=== PATIENT | male | born 1950 | race Caucasian/White ===

== ENCOUNTER 2018-08-20 20:40 | Emergency (ER) | payer MEDICARE, OTHER ==
--- NOTE | 2018-08-20 21:11 | UC ---
General HPI - HPI Summary HPI Summary: 67 yo man, currently on no medications, with history of hypertension and diabetes. Aware of heaviness in the left leg along with ataxia and decreased left arm coordination. Symptoms present on awakening at 06:30 am, last known well last evening. No headache, nausea, diplopia or vision loss. No hx of stroke or weakness. - History of Current Complaint Chief Complaint: UCLowerExtremity Stated Complaint: LEFT LEG "HEAVINESS" Time Seen by Provider: 08/20/18 21:00 Hx Obtained From: Patient Onset/Duration: Sudden Onset, Lasting Hours Timing: Intermittent Episodes Lasting: - had initial leg heaviness this morning , improved, but now has increasing ataxia and incoordination of the left hand for the past 1-2 hours. Onset Severity: Moderate Current Severity: Moderate Pain Intensity: 0 Aggravating: nothing Alleviating: improved after resting. Associated Signs & Symptoms: Positive: Nausea, Weakness, Other - ataxia - Allergy/Home Medications Allergies/Adverse Reactions: Allergies Allergy/AdvReac Type Severity Reaction Status Date / Time No Known Allergies Allergy Verified 08/20/18 21:00 Home Medications: Home Medications NK [No Home Medications Reported] 08/20/18 [History Confirmed 08/20/18] PMH/Surg Hx/FS Hx/Imm Hx - Additional Past Medical History Additional PMH: stopped anti-hypertensives and diabetes medications about one year ago due to not liking the side effects of metformin. Cardiovascular History: Hypertension - Surgical History Surgical History: Yes Surgery Procedure, Year, and Place: appy - Family History Known Family History: Positive: Unknown - not assessed due to arranging transfer for suspected stroke - Social History Occupation: Employed Full-time Lives: Alone Alcohol Use: Daily Alcohol Amount: 1-3 beers daily Substance Use Type: None Smoking Status (MU): Former Smoker When Did the Patient Quit Smoking/Using Tobacco: Review of Systems All Other Systems Reviewed And Are Negative: Yes Neurological: Negative: Headache Is Patient Immunocompromised?: No Physical Exam Triage Information Reviewed: Yes Appearance: No Pain Distress, Thin, Other: - alert, coherent historian Vital Signs: Initial Vital Signs Temp 98.3 F 08/20/18 20:44 Pulse 94 08/20/18 20:44 Resp 16 08/20/18 20:44 BP 220/130 08/20/18 20:44 Pulse Ox 99 08/20/18 20:44 Vital Signs Reviewed: Yes Eyes: Positive: Conjunctiva Clear ENT: Positive: Pharynx normal Dental Exam: Normal Neck: Positive: Supple, Nontender Respiratory: Positive: Lungs clear, Normal breath sounds Cardiovascular: Positive: RRR, No Murmur Neurological Exam: Other - left pronator drift, left hip with 3/5 muscle strength compared to 4.5/5 on the right. Ataxic gait, falls to the left, cannot heel to toe walk. DTR's 3+ both knees. Neurological: Positive: Alert Psychological: Positive: Normal Response To Family Skin Exam: Normal Course/Dx - Course Course Of Treatment: transferred to ER due to suspected stroke or TIA with ataxia and left sided weakness. - Diagnoses Provider Diagnosis: Left-sided weakness - Physician Notifications Discussed Patient Care With: Abebe Mcneal - discussed, decision made to tranfer directly to [facility] at [facility] Time Discussed With Above Provider: 21:40 Discharge - Sign-Out/Discharge Documenting (check all that apply): Patient Departure All imaging exams completed and their final reports reviewed: No Studies - Discharge Plan Condition: Stable Disposition: TRANS HIGHER LVL OF CARE FAC Referrals: No Primary Care Phys,NOPCP [Primary Care Provider] - - Billing Disposition and Condition Condition: STABLE Disposition: Trans Higher Lvl of Care Fac
[2018-08-20 21:30] VITALS: BP 233/127
== END 2018-08-20 21:43 | disposition short-term general hospital (02) ==
LOC: UCCORT 20:40
DX: M62.81 Muscle weakness (generalized) (principal); E11.9 Type 2 diabetes mellitus without complications; Z87.891 Personal history of nicotine dependence; I10 Essential (primary) hypertension
CPT/HCPCS: 99213; G0463

== ENCOUNTER 2019-01-05 16:51 | Emergency (ER) | payer MEDICARE ==
--- OUTSIDE RECORDS SUMMARY | 2019-01-05 17:00 | XMS REPORT | Continuity of Care Document ---
:1950 External Reference #:[id number] Author Name Jocelyn Ramos MD, PHD Address [address] [place] [address], [address] [place] [address] Care Team Providers Name Role Phone Jocelyn Ramos MD, PHD Care Team Information Saw Runner Unavailable Jocelyn Ramos MD, PHD Primary Care Physician Unavailable Payers Date Identification Numbers Payment Provider Subscriber Policy Number: [id number] Medicare Jeremy Tillman PayID: [id number] [address] [place] [address] Advance Directives Description No Information Available Problems Active Problems Provider Date Type II diabetes mellitus uncontrolled Jocelyn Ramos MD, PHD Onset: 2018 Cerebral artery occlusion Jocelyn Ramos MD, PHD Onset: 09/02/2018 Essential hypertension Jocelyn Ramos MD, PHD Onset: 09/02/2018 Nonunion of fracture Jocelyn Ramos MD, PHD Onset: 09/02/2018 Malaise and fatigue Jocelyn Ramos MD, PHD Onset: 09/02/2018 Reduced libido Jocelyn Ramos MD, PHD Onset: 12/21/2018 Type 1 diabetes mellitus uncontrolled Jocelyn Ramos MD, PHD Onset: 2018 Dysarthria Jocelyn Ramos MD, PHD Onset: 11/30/2018 HiccoughJocelyn Branham MD, PHD Onset: 11/30/2018 Gastroesophageal reflux disease Jocelyn Ramos MD, PHD Onset: 11/30/2018 Family History Description No Information Available Social History Type Date Description Comments Sex Unknown Lives With Alone Diet Patient follows no dietary restrictions Occupation Registered Dietitian ADL's/IADL's Independent with all ADL's ADL's/IADL's Independent with all IADL's Tobacco Use Start: Unknown Never Smoked Cigarettes Smoking Status Reviewed: 12/21/18 Never Smoked Cigarettes ETOH Use Occasionally consumes alcohol Tobacco Use Start: Unknown Patient denies history of smoking Recreational Drug Use Denies Drug Use Allergies, Adverse Reactions, Alerts Description No Known Drug Allergies Medications Active Medications SIG Qnty Indications Ordering Provider Date Glipizide ER 1 by mouth 90tabs Jocelyn Ramos, 11/30/2018 5mg Tablets every day , PHD ER 24HR Aspirin 81 1 by mouth 90tabs E11.65 Jocelyn Ramos, 11/30/2018 81mg Tablets every day , PHD I63.9 I10 Vitamin D3 Maximum 1 by mouth every 90caps I63.9 Jocelyn Ramos MD, 04/2019 Strength day PHD 5000Unit Capsules E11.65 S82.102K Metformin HCL ER 2 tabs by mouth 120tabs E11.65 Jocelyn Ramos, 2018 500mg every morning , PHD Tablets ER 24HR Amlodipine Besylate 1 by mouth every 90tabs I10 Jocelyn Ramos, 10mg day , PHD Tablets I63.9 E11.65 Atorvastatin Calcium 1 by mouth every 90tabs I63.9 Jocelyn Ramos, 00 80mg evening , PHD Tablets Clopidogrel Bisulfate 1 by mouth every 90tabs I63.9 Jocelyn Ramos, 75mg evening , PHD Tablets I10 E11.65 History Medications Ranitidine HCL by mouth twice 60caps K21.9 Jocelyn Ramos, 11/30/2018 - 150mg a day MD PHD 12/21/2018 Capsules Lisinopril 1 by mouth 90tabs E11.65 Jocelyn Ramos, 11/25/2018 - 40mg every day MD PHD 12/21/2018 Tablets I63.9 I10 No Active Unknown 09/02/2018 - Medications 09/02/2018 Metformin HCL ER 2 tabs by mouth 60tabs E11.65 Jocelyn Ramos, 2018 - (Mod) every day every , PHD 09/02/2018 500mg Tablets morning ER 24HR Aspir-81 1 by mouth every 90tabs E11.65 Jocelyn Ramos, - 81mg Tablets day , PHD 11/30/2018 DR Monte.9 I10 Glipizide 1 by mouth 90tabs Jocelyn Ramos, - 5mg Tablets every day MD PHD 11/30/2018 Lisinopril 1 by mouth 90tabs E11.65 Jocelyn Ramos, - 30mg every day , PHD 11/25/2018 Tablets Lavell.9 I10 Metformin HCL take one tablet by Unknown - 09/02/2018 500mg Tablets mouth twice a day with meal Vitamin D3 1 by mouth every day Unknown - 09/02/2018 1000Unit Capsules Immunizations Description No Information Available Vital Signs Date Vital Result Comment 12/21/2018 1:27pm BP Systolic 172 mmHg BP Diastolic 100 mmHg Body Temperature 96.0 F Heart Rate 82 /min Respiratory Rate 18 /min Height 64 inches 5'4" Weight 136.00 lb BMI (Body Mass Index) 23.3 kg/m2 BSA (Body Surface Area) 1.66 m2 [place] body weight in kilograms 59 kg O2 % BldC Oximetry 99 % 11/30/2018 9:32am BP Systolic 176 mmHg BP Diastolic 92 mmHg Body Temperature 96.9 F Heart Rate 72 /min Respiratory Rate 16 /min Height 64 inches 5'4" Weight 137.00 lb BMI (Body Mass Index) 23.5 kg/m2 BSA (Body Surface Area) 1.67 m2 [place] body weight in kilograms 59 kg O2 % BldC Oximetry 98 % 09/30/2018 8:24am BP Systolic 177 mmHg BP Diastolic 87 mmHg BP Systolic Sitting Right Arm 213 mmHg BP Diastolic Sitting Right Arm 97 mmHg Body Temperature 96.0 F Heart Rate 71 /min Respiratory Rate 16 /min Height 64 inches 5'4" Weight 144.00 lb BMI (Body Mass Index) 24.7 kg/m2 BSA (Body Surface Area) 1.70 m2 [place] body weight in kilograms 59 kg O2 % BldC Oximetry 98 % 09/02/2018 1:25pm BP Systolic 167 mmHg BP Diastolic 102 mmHg Body Temperature 97.8 F Heart Rate 105 /min Respiratory Rate 18 /min Height 64 inches 5'4" Weight 135.00 lb BMI (Body Mass Index) 23.2 kg/m2 BSA (Body Surface Area) 1.66 m2 [place] body weight in kilograms 59 kg O2 % BldC Oximetry 99 % Results Description No Information Available Procedures Description No Information Available Encounters Type Date Location Provider Dx Diagnosis Office Visit 11/30/2018 [facility] Jocelyn Jewell, K21.9 Gastro- esophageal 9:30a Qasim Wilson MD, PHD reflux disease without esophagitis R06.6 Hiccough I63.9 Cerebral infarction, unspecified E11.65 Type 2 diabetes mellitus with hyperglycemia I10 Essential (primary) hypertension 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 Office Visit 09/30/2018 8:30a Family William Ramos I63.9 Cerebral Qasim Banks MD, infarction, PHD unspecified E11.65 Type 2 diabetes mellitus with hyperglycemia I10 Essential (primary) hypertension S82.102K Unsp fx upper end of left tibia, subs for clos fx w nonunion Office Visit 09/02/2018 1:30p Family William Ramos E11.65 Type 2 diabetes Qasim Banks MD, mellitus with PHD hyperglycemia I63.9 Cerebral infarction, unspecified I10 Essential (primary) hypertension S82.102K Unsp fx upper end of left tibia, subs for clos fx w nonunion R53.1 Weakness Plan of Treatment Future Appointment(s):03/01/2019 9:00 am - Joc[facility] MD[facility] PHD at [facility]12/21/2018 - Jocelyn Ramos MD, PHDI63.9 Cerebral infarction, unspecifiedNew Labs:Lipase, Ordered: 12/21/18Comments:I recommend penitentiary. Work liable to cause exposure to dangerous fumes. On a blood thinner - risk of bleeding. Risk of another stroke. Dangerous working 2nd shift. I recommend staying out until February - See if they'll give you a safer offer if you feel better with more energy like part-time days.E11.65 Type 2 diabetes mellitus with hyperglycemiaNew Labs:Glycohemoglobin A1c, Ordered: 12/21Comprehensive Metabolic Panel, Ordered: 12/21/18LDL Cholesterol Profile, Ordered: 12/21/18Microalbumin,Random Urine, Ordered: 12/21/18Vitamin D,25- Hydroxy, Ordered: 12/21/18Thyroid Stim Hormone, Ordered: 12/21/18Comments:For Proper management of diabetes, we need to check * A1C (3-month average of blood sugar) every 3 months if uncontrolled, or every 6 months if well controlled. * Annual Dilated eye exam * Foot exam every 6 months* Cholesterol levels annually * Kidney function every 6 months - including microalbumin (protein spillin in urine)* Check blood pressure regularly (at home and every visit)* No smoking ( cigarettes or marijuana)You need to get at least 30 min of exercise daily. This can be as simple as a 10 min walk after every meal. OmniHeart low-carb, high- protein dietFollow up:3 months recheck A1C and diabetes management follow up.I10 Essential (primary) hypertensionComments:PRESSURE POINTS1 What high blood pressure is. Blood pressure is the force that your blood exerts onthe jones of the arteries it flows through, just like water flowing through a garden hose pushes against the hose??s jones. Your blood pressure consists of two numbers. ??Systolic is the pressure on blood vessel jones during heart beats ,?? says Pascual Hearn, professor of cardiovascular disease prevention at the [employer]. ??Diastolic is the pressure between beats,?? so it??s lower. When people have high blood pressure??also called hypertension??it??s often because blood vessels are too rigid to expand when the heart pumps. It??s as though the hose were made of glass instead of rubber. 2 Everyone is at risk. Why worry about high blood pressure if you haven??t been diagnosed with it? Because, odds are, you eventually will be. ??Over time, 90 percent of people in this country develop hypertension,?? says Blaze Carroll, professor of preventive medicine at the [employer]. That??s because blood pressure typically creeps up as youage. In the Atherosclerosis Risk in Communities study, which followed more than 15,000 Americans aged 45 to 64, average systolic blood pressure danica by five points in five years.1 ??Blood pressures drift upward as people get older and they??re exposed to long-term excess sodium,?? explains Havas. ??That??s why almost all adults are going to get blood pressures that put them at higher risk for heart disease and stroke.?? But most hypertension is preventable with a healthy diet and exercise, he adds.3 Your risk starts to rise at any blood pressure above ?? normal.?? Doctors used to diagnose patientswith hypertension when their systolic pressure reached NORMAL BLOOD PRESSURE <120/<80 * Recommendations : Healthy lifestyle choices and yearly checks.ELEVATED BLOOD PRESSURE 120-129/& lt;80 * Recommendations: Healthy lifestyle changes, reassessed in 3-6 months.HIGH BLOOD PRESSURE / STAGE 1 130-139/80-89 * Recommendations: 10-year heart disease and stroke risk assessment. If less than 10% risk, lifestyle changes, reassessed in 3-6 months. If higher, lifestyle changes and medication with monthly follow-ups until blood pressure is controlled. HIGH BLOOD PRESSURE / STAGE 2 >140/>90 * Recommendations: Lifestyle changes and 2 different classes of medicine, with monthly follow-ups until blood pressure is controlled.How much diet and exercise can lower your blood pressure Got high blood pressure? You??re in good company.Nearly half of [place] adults now have hypertension, according to recent guidelines from the [place] [employer] and the [place] [employer].That means that many people who had ??prehypertension?? according to the old guidelines now have ??stage 1 hypertension.?? Most of them don??t need to start taking drugs to lower their pressure (that depends on other risk factors). Instead, the guidelines recommend a healthy lifestyle.Why? Because it works. Here??s how much your systolic pressure (the higher of your two blood pressure numbers) could fall with diet and exercise, according to the new guidelines:1. Eat a DASH diet: 11 pointsDon??t want to count servings?Start by filling half your plate with fruits and vegetables.A DASH-style diet does it all: protects your heart, piles on the fruits and veggies, and cuts unhealthy carbs. It??s not only low in saturated fat, sugar, and salt, it??s also rich in nutrients like potassium, magnesium, calcium, and fiber.Plus, DASH works for omnivores or vegetarians.2. Exercise: 5 pointsAny kind of exercise helps.All formsof exercise will lower blood pressure, but the best evidence is for aerobic activity. Aim for 90 to 150 minutes a week of aerobics (brisk walking, biking, running, etc.) and/or resistance training (biceps curls, leg presses, etc.).If you??re starting with walking, here??s how to ramp up the intensity gradually.3. Lose weight: 5 pointsDropping extra pounds can lower your pressure.Losing excess weight helps lower blood pressure. Expect about a 1 point drop in systolic pressure for every 2 pounds you lose.4. Cut salt: 5 pointsMost sodium comes from packaged and restaurant foods that don??t even taste salty.To lower blood pressure, cut your sodium by 1,000 milligrams a day, ideally to 1,500 mg a day. Start with these seven foods.Bread. About 100 to 200 mg of sodium per slice is typical. [employer] and some other brands make it easy to stay at the low end.Cheese. Most types have 150 to 250 mg ofsodium per ounce. Try [place] (just 40 to 60 mg) or fresh mozzarella (80 to 100 mg) or just 1 ??slim cut?? or ??thin ?? slice of your favorite variety.Poultry. The salt solution that??s often added to rawchicken or turkey can add 120 mg of sodium to the poultry??s 80 mg of (naturally occurring) sodium. So avoid poultry with labels like ??Contains up to 15% of a solution.??Deli meats. Just 2 oz. can pile 500 to 700 mg of sodium on your sandwich. Get Boar??s Head??s (or another brand??s) ??low-sodium? ? meats that are sliced at the deli counter (about 50 to 80 mg in 2 oz.).Soup. Most soups deliver 600 to 900 mg of sodium per cup. Try Imagine, Dr. Zoraida Garduno??s, Beatris??s Organic, or Chain Machine Operator Umair??s ??Light in Sodium?? or ??Reduced Sodium?? soups instead (200 to 400 mg).Pizza. You can easily get 1,000 mg of sodium in 2 slices. Go light on the cheese, and replace meat with veggies (not olives).Restaurant entre??es. Many pack 1,000 to 2,000 mg of sodium. Save half for later. And add a side salad or other veggies to boost potassium.5. Get more potassium: 4 to 5 pointsAnother reason to eat more vegetables: potassium.The goal: Get 3,500 to 5,000 milligrams of potassium a day. You??ll get the most bang for your calorie edmondson with fruits and vegetables. Some examples: Calories Potassium (mg):Baked potato with skin (1 small) 130 750 Beet greens (?? cup cooked) 20 650 Yellowfin tuna (4 oz. cooked) [id number] Sweet potato with skin (1 small) 130 540 Wild Coho salmon (4 oz. cooked) 160 490 Spinach (?? cupcooked) 20 420 Banana (1) 110 420 Low-fat plain yogurt (6 oz.) 110 400 Fat-free milk (1 cup) 80 380 Cantaloupe (??) 50 370 Lentils (?? cup cooked) 120 370 [place] beans ( ?? cup cooked) 120 370 Tomato sauce (?? cup) 30 360 Avocado (?? cup) 120 360 Spinach (2 cups raw) 10 340 Shelled edamame (?? cup cooked) 100 340 Greenlee or nectarine (1) 60 290 [place] sprouts (?? cup cooked) 30 250 Alvarado (1) 70 240 Edgar lettuce (2 cups raw) 10 230 Apple (1) 100 200 6. Limit alcohol: 4 pointsLimiting alcohol helps keep your pressure in check.If you drink, stop at one drink a day for women or two for men.Find this article interesting and useful? Order a copy of Safe & Easy Steps to Lower Your Blood Pressure. Nine out of 10 Americans will eventually have high blood pressure and, with it, an increased risk of stroke, heart attack, diabetes, dementia, and more. Eating the right diet, losing weight, and exercising can keep your pressure under control. And, if you do have hypertension, it can lower your pressureas much as? ?or more than??prescription drugs. This booklet, from the editors of [employer], shows you how. (48 pages)Dr. Ramos Can Print this out for you.The information in this post first appeared in [employer] in August 2017.WHAT WORKS? If you have high blood pressure, here??s roughly how much of a drop in systolic pressure you can expect from changes in diet and from exercise.Advice ~ What It Means ~ Typical Drop in Systolic Blood Pressure: Maintain a Normal Weight ~ Lose??or don??t gain??excess weight ~ 5 points for every 10 pounds you lose. Follow a DASH Diet ~ Eat a diet: ?? rich in vegetables & fruits ?? that includes whole grains, low-fat dairy, poultry, fish, beans, nuts, & oils ?? low in sugar & red meat ~ 11 pointsCut Sodium ~ Consume no more than 2,400??milligrams a day (1,500 mg a day lowers pressure even more)~ 5 pointsBoost Potassium ~ Shoot for 3,500 to 5,000 milligrams a day, mostly from fruits and vegetables ~ 4-5 pointsExercise ~ Doat least 30 minutes of aerobic activity (like brisk walking) most days of the week ~ 5 pointsLimitAlcohol ~ Men: No more than 2 drinks a day Women: No more than 1 drink a day ~ 4 wvklslM24.222 Dysarthria following other nontraumatic intracranial mpglinvA72.1 UxrbfcmtR34.9 Gastro-esophageal reflux disease without jmgjvxahwsbE24.65 Type 1 diabetes mellitus with hyperglycemiaNew Labs:Insulin Antibodies, Ordered: 12/21/18Sedimentation Rate, Ordered: 12/21/18CBC W/Automated Diff, Ordered: 12/21/18R68.82 Decreased libido
[2019-01-05 17:13] VITALS: BP 202/103
[2019-01-05] MEDS ORDERED: Tetan/Diph/Pertus SYR(Tdap)* 0.5 ML SYR(BOOSTRIX) use SYR IM ONE (17:43)
--- NOTE | 2019-01-05 17:50 | UC ---
Laceration HPI - HPI Summary HPI Summary: Pt presents with c/o multiple lacerations to left second and third fingers while using a chain saw just prior to arrival to Pt states that he is unable to control the bleeding, he is on xarelto, he has injured this hand and fingers multiple times in the past, that he has pre-existing numbness in the injured area. Pt has full ROM and is able to differentiate between soft and sharp at tips of injured fingers. - History Of Current Complaint Chief Complaint: UCLaceration Stated Complaint: LEFT MID FINGER LACERATION Time Seen by Provider: 01/05/19 17:25 Hx Obtained From: Patient Laceration Location: Finger - left second and third Mechanism Of Injury: Sharp Trauma Onset/Duration: Sudden Onset Severity: Moderate Pain Intensity: 2 Aggravating Factors: Movement Related History: Dominant Hand Right - Allergies/Home Medications Allergies/Adverse Reactions: Allergies Allergy/AdvReac Type Severity Reaction Status Date / Time No Known Allergies Allergy Verified 01/05/19 17:03 Home Medications: Home Medications Aspirin 81 mg PO DAILY 01/05/19 [History Confirmed 01/05/19] Atorvastatin* [Lipitor 80 MG*] 80 mg PO DAILY 01/05/19 [History Confirmed ] Calcium Carbonate/Vitamin D3 [Calcium 600 + Vit D Tablet] 1 each PO DAILY [History Confirmed 01/05/19] Clopidogrel TAB* [Plavix TAB*] 75 mg PO DAILY 01/05/19 [History Confirmed ] Lisinopril TAB* [Prinivil TAB 10 MG*] 40 mg PO DAILY 01/05/19 [History Confirmed 01/05/19] Multivitamin [Multivitamins] 1 cap PO DAILY 01/05/19 [History Confirmed 01/05/19 ] amLODIPine TAB* [Norvasc 5 mg TAB*] 10 mg PO DAILY 01/05/19 [History Confirmed 01/05/19] glipiZIDE TAB* [Glucotrol TAB*] 5 mg PO DAILY 01/05/19 [History Confirmed ] PMH/Surg Hx/FS Hx/Imm Hx Previously Healthy: Yes Cardiovascular History: Cardiac Disease - Surgical History Surgical History: Yes Surgery Procedure, Year, and Place: appy - Family History Known Family History: Positive: Unknown - not assessed due to arranging transfer for suspected stroke - Social History Occupation: Retired Lives: With Family Alcohol Use: None Alcohol Amount: 1-3 beers daily Substance Use Type: None Smoking Status (MU): Former Smoker Have You Smoked in the Last Year: No When Did the Patient Quit Smoking/Using Tobacco: - Immunization History Most Recent Tetanus Shot: uknown Hx Tetanus, Diphtheria Vaccination: Yes Vaccination Up to Date: No Review of Systems All Other Systems Reviewed And Are Negative: Yes Constitutional: Positive: Negative Skin: Positive: Other - multiple laceration Eyes: Positive: Negative ENT: Positive: Negative Respiratory: Positive: Negative Cardiovascular: Positive: Negative Gastrointestinal: Positive: Negative Genitourinary: Positive: Negative Motor: Positive: Decreased ROM - pain and bleeding with ROM of left second and third fingers Neurovascular: Positive: Negative Musculoskeletal: Positive: Arthralgia, Edema, Myalgia Neurological: Positive: Negative Psychological: Positive: Negative Is Patient Immunocompromised?: No Physical Exam Triage Information Reviewed: Yes Appearance: Well-Appearing Vital Signs: Initial Vital Signs Temp 99.5 F 01/05/19 17:08 Pulse 100 01/05/19 17:08 Resp 18 01/05/19 17:08 BP 202/103 01/05/19 17:08 Pulse Ox 100 01/05/19 17:08 Vital Signs Reviewed: Yes Eye Exam: Normal ENT: Positive: Hearing grossly normal Neck exam: Normal Respiratory: Positive: No respiratory distress Musculoskeletal: Positive: ROM Intact, No Edema - generalized edema left 2nd and 3rd fingers Neurological Exam: Normal Neurological: Positive: Alert Psychological Exam: Normal Skin Exam: Other - dorsal aspect at DIP and MIP joint, multiple lacerations to left index finger, distal laceration on left index finger at DIP joint has pulsating spraying blood. other lacerations oozing blood. Pressure bandage applied laceration to left 3rd finge begins at base of finger and extends to just distal of MIP joint is linear with multiple small "branches" off laceration , bleeding controlled by pressure bandage. Pt able to differentiate between sharp and soft, denies , numbness, has full ROM in all fingers and hand. Diagnostics - Laboratory Lab Results: I spoke with DR. Alfonso and he requested that I suture the lacerations as best as possible and then have the patient see him on 01/08/19 in the [place] office for follow up . I expressed my concern for a small arterial involvement and my concern for infection due to chain saw as cause of injury. Cyndie Alfonso indicated to cleanse wound throroughly and to start pt on antibiotics and then to - Radiology No standard instances Radiology Interpretation Completed By: Radiologist - 4 views of left hand demonstrates no fracture. No other bone or joint abnormality is identified. IMPRESSION: No fracture of the left hand is identified. Laceration Course/Dx - Course/Dx Course Of Treatment: I discussed the need to keep the wound clean and dry and to follow up with Dr. Alfonso on 01/08/19. Pt verbalized understanding and agreed to plan of care. - Differential Dx - Laceration/Wound Differental Diagnoses: Fracture, Laceration - Diagnosis Provider Diagnosis: Laceration of left index finger, Laceration of left middle finger Discharge - Sign-Out/Discharge Documenting (check all that apply): Patient Departure All imaging exams completed and their final reports reviewed: Yes - Discharge Plan Condition: Stable Disposition: HOME Prescriptions: Cephalexin CAP* [Keflex 500 CAP*] 500 mg PO Q8H #30 cap Patient Education Materials: Care For Your Stitches (ED), Finger Laceration (ED ) Referrals: Jocelyn Ramos MD [Primary Care Provider] - Magdy Alfonso MD [Medical Doctor] - 01/08/19 Additional Instructions: PLEASE CALL DR ALFONSO OFFICE TOMORROW MORNING. IF YOUR SYMPTOMS DO NOT IMPROVE OR THEY WORSEN PRIOR TO YOUR APPOINTMENT WITH DR ALFONSO, PLEASE RETURN TO URGENT CARE OR GO DIRECTLY TO THE CLOSEST EMERGENCY ROOM. - Billing Disposition and Condition Condition: STABLE Disposition: Home
[2019-01-05] MEDS ORDERED: Lidocaine 1%* 5 ML VIAL INJ ONE (18:17)
== END 2019-01-05 19:50 | disposition home or self-care (01) ==
LOC: UCCORT 16:51
DX: S61.211A Laceration without foreign body of left index finger without damage to nail, initial encounter (principal); S61.213A Laceration without foreign body of left middle finger without damage to nail, initial encounter; W29.3XXA Contact with powered garden and outdoor hand tools and machinery, initial encounter; Y92.89 Other specified places as the place of occurrence of the external cause; I51.9 Heart disease, unspecified; Z79.82 Long term (current) use of aspirin; Z87.891 Personal history of nicotine dependence
CPT/HCPCS: 12002; 90471; 90715; 99212; G0463